=== PATIENT | female | born 1975 | race Caucasian/White ===

== ENCOUNTER → 2021-11-19 11:31 | Outpatient (CLI) | payer OTHER, SELFPAY ==
--- NOTE | 2021-11-19 | DI.RAD.S_ITS ---
PROCEDURE: XR ANKLE RT MIN 3V INDICATIONS: Stiffness of right ankle, not elsewhere classified TECHNIQUE: 3 views of the ankle were acquired. COMPARISON: None. FINDINGS: Bones: No acute fractures or dislocations. Ankle mortise is normally aligned. No suspicious bony lesions. Small plantar calcaneal spur. Soft tissues: No suspicious soft tissue calcifications. Mild edema is seen over the lateral malleolus. IMPRESSION: No acute osseous abnormality. If clinical suspicion and/or symptoms persist, additional imaging with repeat plain films, or advanced imaging (e.g. CT, MRI) may be helpful for further assessment. Dictated by: Nick Martinez M.D. on 11/19/2021 at 16:58 Approved by: Nick Martinez M.D. on 11/19/2021 at 16:59
--- NOTE | 2021-11-19 | DI.RAD.S_ITS ---
PROCEDURE: XR KNEE RT 3V INDICATIONS: Stiffness of right ankle, not elsewhere classified TECHNIQUE: 3 views of the knee were acquired. COMPARISON: None. FINDINGS: Bones: No fractures or dislocations. No suspicious bony lesions. Soft tissues: Moderate joint effusion. No suspicious soft tissue calcifications. IMPRESSION: Moderate effusion. No visualized acute fracture or dislocation. However, if clinical concern and/or pain persist, short interval imaging followup in 7-10 days is recommended, as occult injury cannot be definitively excluded. Dictated by: Fabienne Reeves M.D. on 11/20/2021 at 8:19 Approved by: Fabienne Reeves M.D. on 11/20/2021 at 8:20
--- NOTE | 2021-11-19 | DI.RAD.S_ITS ---
PROCEDURE: XR FOOT RT MIN 3V INDICATIONS: Stiffness of right ankle, not elsewhere classified TECHNIQUE: 3 views of the foot were acquired. COMPARISON: None. FINDINGS: Bones: No fractures or dislocations. No suspicious bony lesions. Plantar calcaneal bone spur. Soft tissues: No tibiotalar joint effusion. Achilles tendon appears normal. IMPRESSION: Calcaneal bone spur. No acute osseous lesion. If symptoms and/or clinical suspicion for pathology persists, further assessment with advanced imaging (e.g. CT, MRI or bone scan) should be considered. Dictated by: Sahara Swan MD, PhD on 11/19/2021 at 16:02 Approved by: Sahara Swan MD, PhD on 11/19/2021 at 16:03
== END ==
PROVIDERS: Family Provider Family Medicine; PCP Physician Assistant; Referring Provider Physician Assistant; Visit Provider Physician Assistant
DX: M77.31 Calcaneal spur, right foot (principal); M25.461 Effusion, right knee; M25.571 Pain in right ankle and joints of right foot; M25.671 Stiffness of right ankle, not elsewhere classified; M79.671 Pain in right foot; M25.561 Pain in right knee
CPT/HCPCS: 73562; 73610; 73630

== ENCOUNTER 2025-04-21 12:24 | Emergency (ER) | payer OTHER, SELFPAY ==
[2025-04-21 13:04] VITALS: BP 137/67; PULSE 92; RESP 16; TEMP 36.6; O2SAT 97; BMI 29.0
--- NOTE | 2025-04-21 14:39 | DI.RAD.S_ITS ---
PROCEDURE: XR TIBIA FUBULA RT 2V INDICATIONS: dog bite TECHNIQUE: 2 views of the tibia and fibula were acquired. COMPARISON: None. FINDINGS: Bones: No fractures or dislocations. No suspicious bony lesions. Soft tissues: No suspicious soft tissue calcifications or masses. No radiopaque foreign body. IMPRESSION: No acute bony abnormality. No radiopaque foreign body. Dictated by: Patric Wright M.D. on 04/21/2025 at 15:01 Approved by: Patric Wright M.D. on 04/21/2025 at 15:02
--- NOTE | 2025-04-21 15:05 | ED.ANIMALBIT ---
HPI - Animal Bite <Brianda Simms PA-C - Last Filed: 04/21/25 16:15> General Chief Complaint: Animal Bite Stated Complaint: In office dog bite Time Seen by Provider: 04/21/25 13:33 Source: patient Mode of arrival: Ambulatory History of Present Illness HPI narrative: Ms. Dunn is a very pleasant 50-year-old female with no reported past medical history who presents to the emergency department for a right calf dog bite that occurred prior to arrival. Patient was at work when her coworkers lab mix dog bit her on the back of the right leg. She now has 2 puncture wounds. She was evaluated at the [facility], was given a Tdap, 1st dose of Augmentin, and wound was irrigated extensively but she was sent to the ER for further management and possible wound closure. Patient now has a small puncture wound on the medial right calf and a 2 cm laceration/puncture wound on the lateral calf. She is reporting some sensation of tingling distal to the wound on her toes. There is no active bleeding, no blood thinner use, no medication allergies. Dog is reported to be up-to-date on his rabies vaccines however dog is also able to be observed for a 10 day period. Related Data Home Medications ?Medication ?Instructions ?Recorded ?Confirmed ACETAMINOPHEN (TYLENOL EXTRA 1,000 mg PO PRN ##0 08/20/11 STRENGTH) [CALCIUM WITH VITAMIN] ##0 08/20/11 [IRON] ##0 08/20/11 [ VITAMIN] ##0 08/20/11 Allergies Allergy/AdvReac Type Severity Reaction Status Date / Time No Known Drug Allergies Allergy Verified 04/21/25 13:04 Review of Systems <Brianda Simms PA-C - Last Filed: 04/21/25 16:15> Review of Systems ROS Unobtainable: All systems reviewed & are unremarkable except as noted in HPI and below Patient History <Brianda Simms PA-C - Last Filed: 04/21/25 16:15> Surgical History Status post tubal ligation Social History Smoking Status: Current every day smoker Smoking Status: Current every day smoker tobacco type: cigarettes Exam <Brianda Simms PA-C - Last Filed: 04/21/25 16:15> Narrative Exam Narrative: GENERAL: 50 year old patient appears stated age. Well-developed patient, in no acute distress. CARDIOVASCULAR: Regular rate RESPIRATORY: ?Nonlabored respirations. ?Speaking in clear, full sentences. EXTREMITIES: There is a 2 cm linear gaping puncture wound/laceration on the lateral right lower extremity and a 0.5 cm linear laceration/puncture on the medial right lower extremity. No other wounds. No active bleeding. Fatty tissue is exposed, no deeper structures visualized. Strong DP and PT pulses bilaterally, brisk capillary refill in the toes and sensation intact to light touch in the plantar and dorsal aspect of the feet. And is able to dorsiflex and plantar flex both feet. NEURO: AOx3. ?Clear speech. ?Moves all 4 extremities appropriately. SKIN: 2 puncture wounds just distal to right calf described above. There is no drainage or surrounding erythema. Initial Vital Signs Initial Vital Signs: Vital Signs Temperature 97.8 F 04/21/25 13:04 Pulse Rate 92 H 04/21/25 13:04 Respiratory Rate 16 04/21/25 13:04 Blood Pressure 137/67 04/21/25 13:04 Pulse Oximetry 97 04/21/25 13:04 Oxygen Delivery Method Room Air 04/21/25 13:04 <Luís Muhammad MD - Last Filed: 04/21/25 19:17> Initial Vital Signs Initial Vital Signs: Vital Signs Temperature 97.8 F 04/21/25 13:04 Pulse Rate 92 H 04/21/25 13:04 Respiratory Rate 16 04/21/25 13:04 Blood Pressure 137/67 04/21/25 13:04 Pulse Oximetry 97 04/21/25 13:04 Oxygen Delivery Method Room Air 04/21/25 13:04 Procedures <Brianda Simms PA-C - Last Filed: 04/21/25 16:15> Laceration Repair Laceration 1: Time of procedure: 16:00 Site: lower extremity Side (If applicable): right Size (cm): 2 Description: linear Depth: simple, single layer (involves fat) Local Anesthetic: lidocaine 1% and with epi Amount of anesthesia used (mL): 3 Pre-repair: wound explored, irrigated extensively (Irrigated with over 1 L of normal saline with diluted Betadine, cleansed with a Betadine) and deep structures intact Skin layer closed with: nylon Skin layer suture size: 4-0 Course <Brianda Simms PA-C - Last Filed: 04/21/25 16:15> Orders Ordered: ED Orders 04/21/25 14:39 XR tibia fibula RT 2V Stat Discontinued Medications Acetaminophen (Acetaminophen 325 Mg Tablet) 650 mg PO NOW ONE Stop: 04/21/25 15:18 Last Admin: 04/21/25 15:25 Dose: 650 mg Documented By: CARMEN Bacitracin (Bacitracin Oint 0.9 Gm Pckt) 1 applic TOP NOW ONE Stop: 04/21/25 15:20 Last Admin: 04/21/25 15:55 Dose: 1 applic Documented By: DENNISE Ibuprofen (Ibuprofen 400 Mg Tablet) 400 mg PO NOW ONE Stop: 04/21/25 15:18 Last Admin: 04/21/25 15:25 Dose: 400 mg Documented By: CARMEN Vital Signs Vital signs: Vital Signs - 8 hr 04/21/25 13:04 04/21/25 16:29 Temperature 97.8 F Pulse Rate 92 H 70 Respiratory Rate 16 20 Blood Pressure 137/67 120/67 Pulse Oximetry 97 97 Oxygen Delivery Method Room Air Room Air <Luís Muhammad MD - Last Filed: 04/21/25 19:17> Orders Ordered: ED Orders 04/21/25 14:39 XR tibia fibula RT 2V Stat Discontinued Medications Acetaminophen (Acetaminophen 325 Mg Tablet) 650 mg PO NOW ONE Stop: 04/21/25 15:18 Last Admin: 04/21/25 15:25 Dose: 650 mg Documented By: CARMEN Bacitracin (Bacitracin Oint 0.9 Gm Pckt) 1 applic TOP NOW ONE Stop: 04/21/25 15:20 Last Admin: 04/21/25 15:55 Dose: 1 applic Documented By: DENNISE Ibuprofen (Ibuprofen 400 Mg Tablet) 400 mg PO NOW ONE Stop: 04/21/25 15:18 Last Admin: 04/21/25 15:25 Dose: 400 mg Documented By: CARMEN Vital Signs Vital signs: Vital Signs - 8 hr 04/21/25 13:04 04/21/25 16:29 Temperature 97.8 F Pulse Rate 92 H 70 Respiratory Rate 16 20 Blood Pressure 137/67 120/67 Pulse Oximetry 97 97 Oxygen Delivery Method Room Air Room Air MDM - Animal Bite <Brianda Simms PA-C - Last Filed: 04/21/25 16:15> Medical Records Attestation: I reviewed the patient's medical records. Imaging Data Right Tib/Fib: Radiologist's Impression: PROCEDURE: XR TIBIA FUBULA RT 2V INDICATIONS: dog bite TECHNIQUE: 2 views of the tibia and fibula were acquired. COMPARISON: None. FINDINGS: Bones: No fractures or dislocations. No suspicious bony lesions. Soft tissues: No suspicious soft tissue calcifications or masses. No radiopaque foreign body. IMPRESSION: No acute bony abnormality. No radiopaque foreign body. Dictated by: Patric Wright M.D. on 04/21/2025 at 15:01 Approved by: Patric Wright M.D. on 04/21/2025 at 15:02 [facility] Narrative Medical decision making narrative: 50-year-old female with no reported past medical history who presents to the emergency department for a right calf dog bite that occurred prior to arrival. Dog is reported to be up-to-date on vaccines in the dog is also able to be monitored for the next 10 days, I did recommend that if the dog were to or develop symptoms of rabies in the next 10 days she should return immediately for post exposure prophylaxis. Differential diagnosis includes but is not limited to dog bite, laceration, puncture wound, crush injury, foreign body, infection, etc. On exam patient is in no acute distress, nontoxic appearing, vital signs appropriate. On the right lower leg, just distal to the calf, there are 2 puncture wound/lacerations with fatty tissue exposed, no deeper structures involved. She is neurovascularly intact distal to the wound. No bleeding. Wound was already cleansed, Tdap was updated, and 1st dose of Augmentin given. She has full 7 day course of Augmentin. Tib-fib x-ray ordered revealing no bony abnormality or foreign bodies. After shared decision-making with the patient, I will place 1 suture into the lateral/largest wound because it is quite gaping however discussed proper wound care, signs and symptoms of infection, allowing wounds to heal by secondary intention. Both puncture wounds were irrigated extensively and cleansed. One simple interrupted suture was placed into the large gaping wound to allow for loose reapproximation. Bacitracin, nonadherent dressing and an Keon bandage were applied to the wound/lower leg. Discussed proper wound care, prompt follow up with PCP for wound recheck, signs and symptoms for ER return, completion of full course of antibiotics. Patient verbalized understanding of all information is agreeable with the plan. She is stable for discharge home. Discharge Plan Departure Patient Disposition: Home Clinical Impression: Dog bite of right lower leg Qualifiers: Encounter type: initial encounter Qualified Code(s): S81.851A - Open bite, right lower leg, initial encounter Instructions: DI for Dog Bite Activity Restrictions/Additional Instructions: Dear Ms. Dunn, Thank you for coming to the emergency department. Today you were evaluated for a right lower leg dog bite. Please complete the full 7 day course of antibiotics that you were previously prescribed. Because your wound was gaping, we did place 1 stitch loosely today, this needs to be removed in 7-10 days. You may do this in your doctor's office, the [id number], or here if necessary. Please keep the dressing on your wound clean, dry, and intact for the next 24 hours. After this time, you may remove the dressing and gently clean the wound with soap and water, then pat dry. Keep the wound clean and covered. Avoid soaking the wound in any water such as a bath, pool, or the ocean. If you develop any signs of wound infection such as increased redness, pus drainage, streaking redness, or fevers, please return to the ER immediately for evaluation. Please use RICE therapy for your pain in addition to ibuprofen/acetaminophen. Rest the painful area. Ice the area of pain/swelling for at least 15 minutes, 4x a day. Compress the area of swelling using a brace, wrap, or splint if applied. Elevate the painful or swollen extremity by supporting it above the level of the heart with pillows when sitting or laying. Elevation is extremely important throughout the healing process. I would like you to have a wound recheck with your primary care doctor in the next few days. Please follow up with your primary care doctor within the next 2-3 days for ER follow-up. (If you do not have a PCP you can call [phone]. ?to schedule an appointment with an [facility] Primary Care Provider) IF YOU DEVELOP ANY NEW OR WORSENING SYMPTOMS, RETURN TO THE ER! Please read the attached instructions, they highlight more specific treatments and interventions for you at home. Thank you for letting me participate in your care, Brianda Simms PA-C Prescriptions: No Action [CALCIUM WITH VITAMIN] Qty: 0 [IRON] Qty: 0 [ VITAMIN] Qty: 0 ACETAMINOPHEN (TYLENOL EXTRA STRENGTH) 1,000 mg PO PRN Qty: 0 Referrals: Luís Main PA-C [Primary Care Provider, Medical] Stand Alone Forms: Patient Portal/API, Work Release Note ED Sign-out <Luís Muhammad MD - Last Filed: 04/21/25 19:17> Cosign ED Attending Cosignature Attestation: I was immediately available in the department for consultation. ?This documentation has been reviewed and I agree with assessment and plan. Supervised by Luís Muhammad MD
[2025-04-21] MEDS: ACETAMINOPHEN 325 MG TABLET 650 MG PO (15:25)
[2025-04-21] MEDS: IBUPROFEN 400 MG TABLET PO (15:25)
[2025-04-21] MEDS: BACITRACIN OINT 0.9 GM PCKT 1 APPLIC TOP (15:55)
[2025-04-21 16:29] VITALS: BP 120/67; PULSE 70; RESP 20; O2SAT 97
== END 2025-04-21 16:30 | disposition home or self-care (01) ==
PROVIDERS: Emergency Provider Physician Assistant; Family Provider Family Medicine; PCP Physician Assistant
DX: S81.851A Open bite, right lower leg, initial encounter (principal); W54.0XXA Bitten by dog, initial encounter
CPT/HCPCS: 12001; 73590; 99283